=== PATIENT | male | born 1950 | race African-American/Black ===

== ENCOUNTER 2016-10-03 06:22 | Emergency (ER) | payer MEDICARE ==
[2010-10-20 07:38] VITALS: BMI 36.4
== END 2016-10-03 06:59 | disposition home or self-care (01) ==
LOC: D.ER 06:22
DX: M54.5 Low back pain (principal); M25.552 Pain in left hip

== ENCOUNTER 2017-02-13 12:25 | Emergency (ER) | payer MEDICARE ==
[2010-10-20 07:38] VITALS: BMI 36.4
[2017-02-13 13:06] LABS: BASOPHILS 0.2 % (0-2); EOSINOPHILS 3.2 % (0-7); HEMATOCRIT 36.5 % (42.0-54.0); HEMOGLOBIN 12.4 g/dL (13.5-17.5); LYMPHOCYTES 45.9 % (15-50); MCH 31.9 pg (26.0-34.0); MCV 93.8 fL (80.0-100.0); MEAN PLATELET VOLUME 9.9 fL (7.4-10.4); MONOCYTES 9.1 % (2-11); NEUTROPHILS 41.6 % (40-80); PLATELET COUNT 186 10x3/uL (130-400); RBC 3.89 10x6/uL (4.20-6.10); RDW 14.1 % (11.5-14.5); WBC 4.6 10x3/uL (4.8-10.8)
[2017-02-13 13:16] LABS: APPEARANCE CLEAR (CLEAR); BACTERIA FEW /hpf (NONE SEEN); BILIRUBIN NEGATIVE (NEGATIVE); COLOR DK YELLOW (YELLOW); EPITHELIAL CELLS OCC /hpf (0-5); GLUCOSE NEGATIVE (NEGATIVE); KETONE NEGATIVE (NEGATIVE); MUCUS <1+ /lpf (NONE SEEN); NITRITE NEGATIVE (NEGATIVE); PROTEIN NEGATIVE (NEGATIVE); RED CELLS - URINE OCC /hpf (0-5); UROBILINOGEN NORMAL (NORMAL); WHITE CELLS - URINE 0-5 /hpf (0-5)
[2017-02-13 13:49] LABS: ALBUMIN 3.7 g/dL (3.4-5.0); ALKALINE PHOSPHATASE 98 U/L (46-116); ALT (SGPT) 26 U/L (10-68); AMYLASE - SERUM 47 U/L (25-115); BILIRUBIN - TOTAL 0.97 mg/dL (0.2-1.3); CALC OSMOLALITY 282 mosm/kg (275-300); CALCIUM 8.9 mg/dL (8.5-10.1); CARBON DIOXIDE 27.1 mmol/L (21.0-32.0); CHLORIDE - SERUM 104 mmol/L (98-107); GLUCOSE 99 mg/dL (74-106); LIPASE 97 U/L (73-393); POTASSIUM - SERUM 3.9 mmol/L (3.5-5.1); PROTEIN - SERUM 7.8 g/dL (6.4-8.2); SODIUM 141 mmol/L (136-145); UREA NITROGEN 17 mg/dL (7-18); eGFR NON AFRICAN AMERICAN 79 mL/min (90-120)
== END 2017-02-13 16:48 | disposition home or self-care (01) ==
LOC: D.ER 12:25
PROVIDERS: Family Medicine
DX: R10.11 Right upper quadrant pain (principal); R10.9 Unspecified abdominal pain; I10 Essential (primary) hypertension

== ENCOUNTER 2017-12-29 10:46 | Emergency (ER) | payer MEDICARE ==
[~2017-12-29] VITALS: Ht 180.3 cm; Wt 130.0 kg
[2017-12-29 11:01] VITALS: BP 161/100; Ht 180.3 cm; Wt 130.0 kg
[2017-12-29] MEDS ORDERED: NORVASC10 MG PO (11:03)
== END 2017-12-29 11:53 | disposition home or self-care (01) ==
LOC: D.ER 10:46
DX: H00.015 Hordeolum externum left lower eyelid (principal); I10 Essential (primary) hypertension

== ENCOUNTER 2019-08-18 10:28 | Emergency (ER) | payer MEDICARE ==
[~2019-08-18] VITALS: Ht 180.3 cm; Wt 125.5 kg
[~2019-08-18 10:28] MED LIST: NORVASC10 MG PO
[2019-08-18 10:30] VITALS: Ht 180.3 cm; Wt 125.5 kg
[2019-08-18] MEDS ORDERED: AUGMENTIN 875-11 TAB PO (11:14)
[2019-08-18 11:46] VITALS: BP 142/86
== END 2019-08-18 11:46 | disposition home or self-care (01) ==
LOC: D.ER 10:28
DX: M79.645 Pain in left finger(s) (principal); I10 Essential (primary) hypertension; W22.8XXA Striking against or struck by other objects, initial encounter; Y93.9 Activity, unspecified; Y92.9 Unspecified place or not applicable